=== PATIENT | female | born 1995 | race Caucasian/White ===

== ENCOUNTER 2020-09-21 19:11 | Emergency (ER) | payer SELFPAY ==
[~2020-09-21] VITALS: Ht 152.4 cm; Wt 70.0 kg
[2020-09-21 19:17] VITALS: BP 162/75
--- NOTE | 2020-09-21 21:33 | NUR ---
[id number], [id number]
== END 2020-09-21 21:36 | disposition left against medical advice (07) ==
LOC: ED 19:30
DX: R51.9 Headache, unspecified (principal); Z53.21 Procedure and treatment not carried out due to patient leaving prior to being seen by health care provider